=== PATIENT | male | born 1990 | race Caucasian/White ===

== ENCOUNTER 2023-04-29 08:40 | Emergency (ER) | payer MEDICAID | END 2023-04-29 12:16 | disposition home or self-care (01) | LOC: JP.ED 08:40 | DX: H10.023 Other mucopurulent conjunctivitis, bilateral (principal); B09 Unspecified viral infection characterized by skin and mucous membrane lesions; Z88.0 Allergy status to penicillin; Z86.16 Personal history of COVID-19 | CPT/HCPCS: 87081; 87880-QW; 99283 ==

== ENCOUNTER 2023-06-20 14:34 | Emergency (ER) | payer MEDICAID ==
[2023-06-20] MEDS ORDERED: EPINEPHrine 1 MG/ML SDV IM ONE (14:44)
[2023-06-20] MEDS ORDERED: Sodium Chloride 0.9% 1,000 ML IV SCH (14:45)
[2023-06-20] MEDS ORDERED: diphenhydrAMINE 50 MG/ML SDV IVPUSH ONE (14:45)
== END 2023-06-20 15:47 | disposition home or self-care (01) ==
LOC: JP.ED 14:34
DX: S90.862A Insect bite (nonvenomous), left foot, initial encounter (principal); Z88.0 Allergy status to penicillin; Z86.16 Personal history of COVID-19; W57.XXXA Bitten or stung by nonvenomous insect and other nonvenomous arthropods, initial encounter
CPT/HCPCS: 96361; 96372; 96374; 99282; J0171; J1200; J7030